=== PATIENT | female | born 1990 | race Caucasian/White ===

== ENCOUNTER 2017-01-06 19:22 | Emergency (ER) | payer OTHER ==
[2017-01-06 16:06] LABS: BASOPHILS 0.2 %; BASOPHILS ABSOLUTE 0.02 10/3/uL (0.0-0.16); EOSINOPHILS 2.1 %; HEMATOCRIT 37.6 % (36.0-48.0); HEMOGLOBIN 12.2 g/dL (12.0-16.0); IMMATURE GRANULOCYTES 0.1 %; IMMATURE GRANULOCYTES ABSOLUTE 0.01 10/3/uL (0.0-0.11); LYMPHOCYTES 11.4 %; LYMPHOCYTES ABSOLUTE 1.09 10/3/uL (0.67-4.30); MEAN CORPUS HGB CONC 32.4 g/dL (32.0-36.0); MEAN CORPUSCULAR HEMOGLOB 27.9 pg (26.0-34.0); MEAN PLATELET VOLUME 9.1 fL (9.2-13.0); MONOCYTES 6.2 %; MONOCYTES ABSOLUTE 0.59 10/3/uL (0.21-1.20); NEUTROPHILS ABSOLUTE 7.61 10/3/uL (2.02-8.40); PLATELET COUNT 274 10/3/uL (150-400); RED CELL COUNT 4.37 10/6/uL (4.0-5.6)
[2017-01-06 16:08] LABS: ER CBC TAT 0 Hrs 08 Mins; MANUAL DIFF NO %; WHITE BLOOD CELLS 9.5 10/3/uL (4.5-10.5)
[2017-01-06 16:15] LABS: INTERNATIONAL NORMAL RATI 1.1 UNITS (-); PARTIAL THROMBO TIME 23.8 SEC (22.5-37.2); PROTIME (NOT ORD) 13.9 SEC (12.0-14.5)
[2017-01-06 16:20] LABS: A/G RATIO 1.1 (0.7-1.9); ALBUMIN 3.8 G/DL (3.5-5.0); ALKALINE PHOSPHATASE 85 U/L (45-117); BUN (BLOOD UREA NITROGEN) 6 MG/DL (6-23); CALCIUM, SERUM 9.1 MG/DL (8.5-10.4); CHLORIDE, SERUM 109 MMOL/L (96-112); CO2 (CARBON DIOXIDE) 26 MMOL/L (24-34); CREATININE 0.72 MG/DL (0.55-1.02); GFR AFRICAN AMERICAN 132 ML/MIN (>=60); GFR NON AFRICAN AMERICAN 114 ML/MIN (>=60); GLOBULIN 3.6 G/DL (2.5-4.1); GLUCOSE, SERUM 91 MG/DL (60-99); POTASSIUM, SERUM 3.9 MMOL/L (3.5-5.3); SGOT(AST) 8 U/L (5-40); SGPT(ALT) 10 U/L (5-65); SODIUM, SERUM 143 MMOL/L (135-148); TOTAL BILIRUBIN 0.2 MG/DL (0-1.2); TOTAL PROTEIN 7.4 G/DL (6.0-8.5)
[~2017-01-06 19:22] MED LIST: AMB10 PO; AMIT25 PO; AMIT50 PO; AMIT75 PO; ATV1 PO; BENAZEPRIL; CARD120 PO; CARDCD120 PO; CEFT2 PO; CYMBALTA60 PO; DURA25 TOP; EXCEDRIN TENSI1 EACH PO; HYOMAX-FT0.125 MG PO; I20 PO; IMITSPRY20 NAS; KLONO1 PO; LEVSINTAB PO; LEXAPRO20 PO; LIBRAX PO; LORT7 PO; LORTAB 5 PO; NEUR600 PO; NEXIUM20 M1 PO; NEXIUM40 PO; NITROQUICK0.4 MG SL; OXYCOD PO; OXYCODONE PO; OXYCON10 PO; PCET PO; PERCOCET1 TA4 PO; PR25 PO; PROTONIX PO; REG PO; REM15 PO; SUCR PO; T PO; TORATAB PO; V5 PO; WELCHOL 625 MG625 MG OR; WELCHOL625 MG OR; XYZAL5 MG PO; ZEGERID1 CA1 PO; ZOFRAN; ZOFRAN ODT4 MG PO; ZOFRAN8 PO; [UNRECOGNIZED DRUG - REMARK]
[2017-02-05] MEDS ORDERED: NEUR300 PO (20:37)
[2017-02-05] MEDS ORDERED: AMB10 PO (20:38)
[2017-02-05] MEDS ORDERED: ATV1 PO (20:39)
[2017-02-05] MEDS ORDERED: ACET500CAP PO (20:40)
[2017-02-05] MEDS ORDERED: PR25 PO (20:40)
[2017-02-05] MEDS ORDERED: STADOLNS NAS (20:41)
[2017-02-07] MEDS ORDERED: NORCO1 TA1 PO (10:52)
[2017-02-07] MEDS ORDERED: ZOFRAN4 MG/5 ML (10:53)
[2017-02-07] MEDS ORDERED: PROTONIX PO (10:53)
[2017-03-12] MEDS ORDERED: STRATT PO (02:20)
[2017-03-12] MEDS ORDERED: MACROBID PO (02:22)
[2017-03-15] MEDS ORDERED: PROTONIX PO (12:05)
[2017-03-15] MEDS ORDERED: PERCOCET 7.5/321 TAB (12:06)
[2017-03-15] MEDS ORDERED: FIORICET 50-301 EACH (12:07)
[2017-07-06] MEDS ORDERED: TOPAMAX25 PO (13:14)
[2017-07-09] MEDS ORDERED: KLOR-CON M2020 MEQ PO (14:07)
[2017-07-09] MEDS ORDERED: FLORASTOR250 MG PO (14:08)
[2017-07-09] MEDS ORDERED: CIP5 PO (14:34)
[2017-07-09] MEDS ORDERED: AMOXIL875 PO (14:37)
[2017-07-09] MEDS ORDERED: NORCO1 TAB PO (14:38)
== END 2017-01-06 22:41 | disposition home or self-care (01) ==
LOC: ER 19:22
PROVIDERS: Emergency Medicine
DX: R10.9 Unspecified abdominal pain (principal); G89.29 Other chronic pain; T78.40XA Allergy, unspecified, initial encounter; K58.9 Irritable bowel syndrome, unspecified; Z88.8 Allergy status to other drugs, medicaments and biological substances; Z79.899 Other long term (current) drug therapy
CPT/HCPCS: 36415; 80053; 85025; 85610; 85730; 86850; 86900; 86901; 93005; 96374; 96375; 99285; C9113; J1980; J2405